=== PATIENT | female | born 1965 ===

== ENCOUNTER 2022-05-09 11:30 | Inpatient (IN) | payer OTHER ==
[2022-05-17] MEDS ORDERED: SYNTHROID50 MCG (11:50)
[2022-05-17] MEDS ORDERED: PANTOPRAZOLE SO40 MG (11:51)
[2022-05-17] MEDS ORDERED: ROSUVASTATIN CAL5 MG (11:51)
[2022-05-17] MEDS ORDERED: METFORMIN HCL500 M4 (11:51)
== END 2022-05-17 15:11 | disposition home or self-care (01) | DRG 330 ==
LOC: O/R 05-15 05:44 → SURG 05-15 05:44
PROVIDERS: ADMIT Colon & Rectal Surgery; ATTEND Colon & Rectal Surgery
PROC: 0DBP4ZZ Excision of Rectum, Percutaneous Endoscopic Approach (ICD-10-PCS; 2022-05-15)
PROC: 0DJ08ZZ Inspection of Upper Intestinal Tract, Via Natural or Artificial Opening Endoscopic (ICD-10-PCS; 2022-05-15)
PROC: 07BB4ZZ Excision of Mesenteric Lymphatic, Percutaneous Endoscopic Approach (ICD-10-PCS; 2022-05-15)
PROC: 0DJD8ZZ Inspection of Lower Intestinal Tract, Via Natural or Artificial Opening Endoscopic (ICD-10-PCS; 2022-05-15)
PROC: 0DTN4ZZ Resection of Sigmoid Colon, Percutaneous Endoscopic Approach (ICD-10-PCS; principal; 2022-05-15 07:45)
DX: K57.32 Diverticulitis of large intestine without perforation or abscess without bleeding (principal); K92.1 Melena; Z68.42 Body mass index [BMI] 45.0-49.9, adult; Z20.822 Contact with and (suspected) exposure to COVID-19; E66.01 Morbid (severe) obesity due to excess calories; E11.9 Type 2 diabetes mellitus without complications; Z79.4 Long term (current) use of insulin